=== PATIENT | male | born 1955 | race Caucasian/White ===

== ENCOUNTER 2018-10-03 19:10 | Inpatient (IN) | payer OTHER ==
[~2018-10-03] VITALS: Ht 177.8 cm; Wt 91.4 kg
[~2018-10-03 19:10] MED LIST: ASPI325; ATOR20 PO; CALCA500CH; DIAZ5; Lisinopril2.5 MG PO; METF500 PO; OXYACE7.5T PO; Zantac150 MG PO
[2018-10-03] MEDS ORDERED: METO50 PO (19:22)
[2018-10-03 19:26] LABS: BASOPHILS ABSOLUTE AUTO 0.01 K/mm3 (0.00-0.23); BASOPHILS PERCENT AUTO 0 % (0-2); EOSINOPHILS ABSOLUTE AUTO 0.11 K/mm3 (0.00-0.68); EOSINOPHILS PERCENT AUTO 2 % (0-6); Hematocrit 39.9 % (37.0-53.0); Hemoglobin 13.2 g/dL (13.5-17.5); IMMATURE GRAN ABSOLUTE AUTO 0.01 K/mm3 (0.00-0.10); IMMATURE GRAN PERCENT AUTO 0 % (0-1); LYMPHOCYTES ABSOLUTE AUTO 1.79 K/mm3 (0.84-5.20); LYMPHOCYTES PERCENT AUTO 35 % (21-46); MONOCYTES ABSOLUTE AUTO 0.21 K/mm3 (0.16-1.47); MONOCYTES PERCENT AUTO 4 % (4-13); Mean Corpuscular HGB 36.6 pg (26.0-34.0); Mean Corpuscular HGB Conc 33.1 g/dL (31.5-36.5); Mean Corpuscular Volume 111 fL (80-100); Mean Platelet Volume 8.9 fL (9.1-12.4); NEUTROPHILS ABSOLUTE AUTO 3.03 K/mm3 (1.96-9.15); NEUTROPHILS PERCENT AUTO 59 % (41-73); Platelet Count 132 K/mm3 (150-400); RDW Coefficient Variation 13.5 % (11.7-14.2); RDW Standard Deviation 55.9 fL (35.1-46.3); Red Blood Cell Count 3.61 M/mm3 (4.30-5.90); White Blood Cell Count 5.16 K/mm3 (4.00-11.30)
[2018-10-03 19:40] LABS: PO2 Arterial 65.5 mmHg (80-100); pH Blood Arterial 7.47 (7.35-7.45)
[2018-10-03 19:52] LABS: Alanine Aminotransfer (ALT/SGP 24 U/L (12-78); Albumin, Blood 3.8 g/dL (3.4-5.0); Albumin/Globulin Ratio 1.1 (0.8-1.8); Alk Phos 92 U/L (50-136); Anion Gap 10 mmol/L (6-16); Aspartate Aminotrans (AST/SGOT 19 U/L (12-37); Bilirubin, Total 0.4 mg/dL (0.1-1.0); Blood Urea Nitrogen 9 mg/dL (8-24); Bun/Creatinine Ratio 10.1 (12.0-20.0); CO2, Blood 26 mmol/L (21-32); Calcium, Blood 8.8 mg/dL (8.5-10.1); Chloride, Blood 104 mmol/L (98-108); Creatinine, Blood 0.89 mg/dL (0.60-1.20); Globulin, Blood 3.6 g/dL (2.2-4.0); Glomerular Filtration Rate >60 (60-); Glucose, Blood 158 mg/dL (70-99); Potassium, Blood 3.9 mmol/L (3.5-5.5); Sodium, Blood 140 mmol/L (136-145); Total Protein, Blood 7.4 g/dL (6.4-8.2); Troponin I 0.078 ng/mL (0.000-0.040)
[2018-10-04 01:56] LABS: Anion Gap 7 mmol/L (6-16); Blood Urea Nitrogen 12 mg/dL (8-24); CO2, Blood 26 mmol/L (21-32); Calcium, Blood 8.9 mg/dL (8.5-10.1); Chloride, Blood 108 mmol/L (98-108); Glomerular Filtration Rate >60 (60-); Glucose, Blood 119 mg/dL (70-99); Sodium, Blood 141 mmol/L (136-145)
[2018-10-04 02:01] LABS: BASOPHILS ABSOLUTE AUTO 0.01 K/mm3 (0.00-0.23); BASOPHILS PERCENT AUTO 0 % (0-2); EOSINOPHILS ABSOLUTE AUTO 0.06 K/mm3 (0.00-0.68); EOSINOPHILS PERCENT AUTO 1 % (0-6); Hematocrit 36.7 % (37.0-53.0); Hemoglobin 12.4 g/dL (13.5-17.5); IMMATURE GRAN ABSOLUTE AUTO 0.02 K/mm3 (0.00-0.10); IMMATURE GRAN PERCENT AUTO 1 % (0-1); LYMPHOCYTES ABSOLUTE AUTO 0.75 K/mm3 (0.84-5.20); LYMPHOCYTES PERCENT AUTO 17 % (21-46); MONOCYTES ABSOLUTE AUTO 0.14 K/mm3 (0.16-1.47); MONOCYTES PERCENT AUTO 3 % (4-13); Mean Corpuscular HGB 36.3 pg (26.0-34.0); Mean Corpuscular HGB Conc 33.8 g/dL (31.5-36.5); Mean Platelet Volume 9.3 fL (9.1-12.4); NEUTROPHILS ABSOLUTE AUTO 3.43 K/mm3 (1.96-9.15); NEUTROPHILS PERCENT AUTO 78 % (41-73); Platelet Count 119 K/mm3 (150-400); RDW Coefficient Variation 13.6 % (11.7-14.2); RDW Standard Deviation 53.9 fL (35.1-46.3); Red Blood Cell Count 3.42 M/mm3 (4.30-5.90); White Blood Cell Count 4.41 K/mm3 (4.00-11.30)
[2018-10-04 02:03] LABS: Mean Corpuscular Volume 107 fL (80-100)
--- NOTE | 2018-10-04 07:21 | NUR ---
SUMMARY PT ADMITTED TONIGHT FROM ER. WHEEZING NOTED ON ARRIVAL. SEEE CBG AND VS. PT A/O PLEASANT WILL BE RECEIVING RT CARE T/O STAY. HAS FLUTTER VALVE. A/O IN NO DISTRESS.
[2018-10-04 08:23] LABS: Adenovirus Not Detected (NOT DETECT); Coronavirus 229E Not Detected (NOT DETECT); Coronavirus HKU1 Not Detected (NOT DETECT); Coronavirus NL63 Not Detected (NOT DETECT); Coronavirus OC43 Not Detected (NOT DETECT)
[2018-10-04 08:24] LABS: Bordetella pertussis Not Detected (NOT DETECT); Chlamydophila pneumoniae Not Detected (NOT DETECT); Human Metapneumovirus Not Detected (NOT DETECT); Human Rhinovirus/Enterovirus Detected (NOT DETECT); Influenza A Not Detected (NOT DETECT); Influenza A/2009-H1 Not Detected (NOT DETECT); Influenza A/H1 Not Detected (NOT DETECT); Influenza A/H3 Not Detected (NOT DETECT); Influenza B Not Detected (NOT DETECT); Mycoplasma pneumoniae Not Detected (NOT DETECT); Parainfluenza Virus 1 Not Detected (NOT DETECT); Parainfluenza Virus 2 Not Detected (NOT DETECT); Parainfluenza Virus 3 Not Detected (NOT DETECT); Parainfluenza Virus 4 Not Detected (NOT DETECT); Respiratory Syncytial Virus Not Detected (NOT DETECT)
--- NOTE | 2018-10-04 08:30 | NUR ---
RECEIVED REPORT AND ASSUMED CARE OF PATIENT. HE IS SITTING UP IN BED, PLEASANT AFFECT, HE IS [place] AT BASELINE. EXPLAINED FLUTTER VALVE AND ENCOURAGED USE AT EACH COMMERCIAL BREAK ON THE TELEVISION. PT EXPRESSED UNDERSTANDING. BED LOW AND LOCKED, CALL LIGHT WITHIN EASY REACH.
--- NOTE | 2018-10-04 10:49 | NUR ---
Echocardiogram completed by Larry Oconnor.
--- NOTE | 2018-10-04 11:47 | NUR ---
PERMISSION FOR CARE PT GAVE THIS HOME ORGANIZER PERMISSION TO PROVIDE CARE ON 10/05/18.
--- NOTE | 2018-10-04 19:42 | NUR ---
PT HAD A GOOD DAY TODAY, HE HAD AN ECHO TODAY AND IS SCHEDULED TO HAVE A STRESS TEST TOMORROW. NM AND IMAGING HAVE PT SCHEDULED TO BE NPO TOMORROW AT 0830 AM AND TEST TO BEGIN AT 1230, PT WILL BE NPO UNTIL 1430. PT REPORTS THAT HE IS A CURRENT EVERY DAY SMOKER, BUT REFUSED THE OFFER TO ASK THE DOCTOR FOR A NICOTINE PATCH. GAVE REPORT TO CHRISTINA CHUNG.
--- NOTE | 2018-10-05 02:41 | NUR ---
ASSUMED CARE OF PATIENT AT APPROXIMATELY 1905 FROM SANDY Mccann RN. 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 PATIENT INDEPENDENT IN ROOM; STRESS TEST FOR TODAY; NO CAFFIENE; NPO 4 HOURS PRIOR (0830) TO PROCEDURE ; PATIENT UNDERSTANDS. PATIENT REPORTS BREATHING TREATMENTS AND "THAT STERIOD IN MY IV" IS HELPING HIM TO FEEL MUCH BETTER. NSR ON TELE; OXYGEN SATURATION ABOVE 90% ON ROOM AIR. PIV S/L. PATIENT CURRENTLY SLEEPING IN BED; CALL LIGHT IN REACH; BED IN LOWEST POSISTION; WILL CONTINUE TO MONITOR AND ASSESS UNTIL END OF SHIFT.
--- NOTE | 2018-10-05 05:34 | NUR ---
PATIENT REPORTS HE FEELS BETTER; "I CAN ACTUALLY BREATH"; REPORTS READY TO GO HOME. NO OTHER ACUTE CHANGES; SLEPT ABOUT EIGHT HOURS LAST NIGHT. VSS. WILL CONTINUE TO MONITOR AND ASSESS UNTIL END OF SHIFT.
--- NOTE | 2018-10-05 16:01 | NUR ---
PT ON WAY TO IMAGING FOR NEXT PORTION OF STRESS TEST.
--- NOTE | 2018-10-05 17:42 | NUR ---
SHIFT SUMMARY: PT HAD A BUSY DAY TODAY, HE WAS IN AND OUT OF THE ROOM HAVING HIS STRESS TEST. NPO AFTER 0830 AND WAS ABLE TO BEGIN EATING AROUND 1430, STRESS TEST COMPLETED BY 1630. PT CONTINUES TO BE COMFORTABLE ON ROOM AIR, HE IS INDEPENDENT AND ABLE TO MOVE AND REPOSITION AD JYOTHI AND USES THE BATHROOM OR URINAL. PT HAD ONE BOUT OF SOB THIS MORNING AFTER GETTING BACK TO BED FROM THE BATHROOM. HE STATED THAT HE DID NOT HAVE ANY PAIN IN HIS CHEST, JUST FELT SOB, 02 SAT AT 96%. ENCOURAGED DEEP BREATHS IN NOSE, OUT MOUTH, PATIENT RETURNED TO BASELINE AND EXPRESSED RELIEF. PT IS ANXIOUS TO GO HOME, HOWEVER UNDERSTANDS THAT DR NEEDS TO REVIEW THE TEST RESULTS BEFORE COMPLETING THE POC GOING FORWARD. WILL CONTINUE TO MONITOR PATIENT AND FOLLOW ORDERS. BED LOCKED AND LOW, CALL LIGHT WITHIN EASY REACH.
--- NOTE | 2018-10-05 21:51 | NUR ---
ASSUMED CARE OF PATIENT AT APPROXIMATELY 1905 FROM SANDY Mccann RN. 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 PATIENT INDEPENDENT IN ROOM; STRESS TEST COMPLETED TODAY; RESULTS STILL PENDING. PATIENT REPORTS TROUBLE BREATHING DURING STRESS TEST BUT CONTINUES TO GET BETTER. NSR ON TELE; OXYGEN SATURATION ABOVE 90% ON ROOM AIR. PIV S/L. PATIENT CURRENTLY SLEEPING IN BED; CALL LIGHT IN REACH; BED IN LOWEST POSISTION; WILL CONTINUE TO MONITOR AND ASSESS UNTIL END OF SHIFT.
--- NOTE | 2018-10-06 06:02 | NUR ---
NO ACUTE CHANGE TO REPORT. PATIENT SLEPT ABOUT EIGHT HOURS LAST NIGHT. VSS. WILL CONTINUE TO MONITOR AND ASSESS UNTIL END OF SHIFT.
--- NOTE | 2018-10-06 19:35 | NUR ---
SHIFT SUMMARY Assumed care of pt at 0700. Report received from Neelima VASQUEZ. Pt kept NPO until plan of care could be discussed with Dr Zavaleta. Dr Zavaleta stated plan to consult Dr Purdy. Pt remained NPO until plan of care discussed with Dr Purdy. Plan stated for coronary angiogram. Pt NPO until time of angiogram. Pt returned from [facility] with right femoral artery access site, covered with tegaderm CHG. Site free of drainage, bruising, or hematoma. Color, sensation, capillary refill, and distal pulses equal BLE. Per [facility] staff, angioseal closure device was used. Pt remained flat in bed, positioned in reverse trendelenburg for four-hours post procedure. During bedside report, HOB was elevated 30 degrees. Right femoral artery access site assessed with oncoming RN. No changes noted. Pt educated that he needs to ambulate with assistance. Bed alarm applied. Bed in lowest position. Call light in reach. Pt denies need at this time.
--- NOTE | 2018-10-06 23:23 | NUR ---
PT HAS VTACH RUN OF 29 IN A ROW. PT IMMEDIATELY ASSESSED. VSS. PT DENIES FEELING "DIFFERENT. DENIES CP, LIGHT HEADEDNESS, CHEST PRESSURE, OR REALLY ANY OTHER ADVERSE FEELING. PT ASYMOPTOMATIC. WILL CONTINUE TO MONITOR. VTACH RUN PLACED IN CHART. IF VTACH CONTINUES, PHYSICIAN WILL BE NOTIFIED.
--- NOTE | 2018-10-07 05:07 | NUR ---
END OF SHIFT SUMMARY ASSUMED CARE OF PT @1900. PT ALERT AND ORIENTED TALKING WITH STAFF. PT SLIGHTLY ANXIOUS ABOUT CONDITION. PT EDUCATED ABOUT CURRENT TREATMENTS BEING TAKEN. PT VERY NOOKSACK. PT PRESENTS WITH R GROIN SITE, HAD JUST COMPLETED 4 HOUR PROTOCOL FOR VS. PT HAS REMAINED IN BED T/O SHIFT AND HAS APPEARED TO SLEEP FOR MAJORITY OF IT. PT HAS BEEN USING URINAL. PT HAD RUN OF VTACH FOR 9 CONSECUTIVE BEATS, PT ASYMPTOMATIC. VSS T/O SHIFT. R GROIN SITE STABLE TO ASSESMENT. NON TENDER, NON INFLAMED, DRESSING INTACT, POSTERIOR HIP P[RESENTS WITHOUT BRUISING, AND SITE IS SOFT TO PALPATION. PT EDUCATED ABOUT ACTIVITY RESTRICTIONS FOR SITE. WILL CONTINUE TO MONITOR PT UNTIL SHIFT CHANGE.
--- NOTE | 2018-10-07 07:45 | NUR ---
EDUCATION Pt states he felt his heart "skip a beat". Pt states this is normal for him and has been experiencing it since his 30's. This RN reviewed telemetry and found scattered PVCs. This RN showed rhythm strip to patient and educated him on electrophyisiolgy of the heart.
[2018-10-07] MEDS ORDERED: ACET325 PO (10:07)
[2018-10-07] MEDS ORDERED: ASPI81CH PO (10:08)
[2018-10-07] MEDS ORDERED: ALBU90OI61 INH (10:08)
[2018-10-07] MEDS ORDERED: Isosorbide Mono30 MG (10:09)
[2018-10-07] MEDS ORDERED: FURO20 PO (10:09)
[2018-10-07] MEDS ORDERED: NITR.4SL SL (10:11)
[2018-10-07] MEDS ORDERED: PRED20 PO (10:13)
[2018-10-07] MEDS ORDERED: NICO21TP TOP (10:43)
--- NOTE | 2018-10-07 20:29 | NUR ---
BEGINNING OF SHIFT - DISCHARGE Assumed care of pt upon arrival to unit at 0700. Report received from Anthony VASQUEZ. Shift assessment completed. Dr Purdy in to see pt. States pt is okay to go home and must follow up with cardiology in 1-2 weeks. Update given to Dr Zavaleta. Dr Zavaleta states plan to discharge pt home. Pt updated on plan of care. This RN scheduled pt's next cardiology appointment and primary care appointment. Appointment dates and times added to discharge packet. New medications called to [facility] in [place]. No changes to right femoral site from shift assessment to discharge. Pt educated on smoking cessation. Pt's brother in room at time of discharge education verbalizes doubt in pt's ability to quit smoking. This RN encouarged the brother to support pt's efforts to quit smoking by going though smoking cessation together. Pt verbalizes desire to quit smoking. IV access and telemetry removed. Pt discharged from PCU at 1140. Accompanied to patient entrance via wheelchair with Josie CARVER.
== END 2018-10-07 11:45 | disposition home or self-care (01) | DRG 286 ==
LOC: ER 19:10 → PCU 19:11 → ER 20:50 → PCU 20:50
PROVIDERS: Emergency Medicine; ADMIT Family Medicine
PROC: 4A023N7 Measurement of Cardiac Sampling and Pressure, Left Heart, Percutaneous Approach (ICD-10-PCS; principal; 2018-10-06)
PROC: B211YZZ Fluoroscopy of Multiple Coronary Arteries using Other Contrast (ICD-10-PCS; 2018-10-06)
DX: I25.110 Atherosclerotic heart disease of native coronary artery with unstable angina pectoris (principal); J96.01 Acute respiratory failure with hypoxia; J44.0 Chronic obstructive pulmonary disease with (acute) lower respiratory infection; I10 Essential (primary) hypertension; Z95.1 Presence of aortocoronary bypass graft; E78.5 Hyperlipidemia, unspecified; R73.03 Prediabetes; H81.09 Meniere's disease, unspecified ear; F17.210 Nicotine dependence, cigarettes, uncomplicated; D69.6 Thrombocytopenia, unspecified; R79.89 Other specified abnormal findings of blood chemistry
CPT/HCPCS: 36415; 36600; 71045; 78452; 80048; 80053; 82803; 82947; 83880; 84484; 85025; 87486; 87581; 87633; 87798; 93005; 93010; 93017; 93306; 93458; 93459; 94640; 94644; 94667; 94760; 96372; 96375; 96376; 99152; 99153; 99285-25; A9500; C1760; C1769; G0378; J1644; J1650; J1815; J1940; J2250; J2785; J2930; J3010; J7030; J7512; Q9967

== ENCOUNTER 2018-11-06 14:23 | Emergency (ER) | payer OTHER ==
[~2018-11-06] VITALS: Ht 177.8 cm; Wt 97.2 kg
[~2018-11-06 14:23] MED LIST changes: +ACET325 PO; +ALBU90OI61 INH; +ASPI81CH PO; +FURO20 PO; +Isosorbide Mono30 MG; +METO50 PO; +NICO21TP TOP; +NITR.4SL SL; +PRED20 PO
[2018-11-06 14:54] LABS: BASOPHILS ABSOLUTE AUTO 0.01 K/mm3 (0.00-0.23); BASOPHILS PERCENT AUTO 0 % (0-2); EOSINOPHILS ABSOLUTE AUTO 0.07 K/mm3 (0.00-0.68); EOSINOPHILS PERCENT AUTO 2 % (0-6); Hematocrit 37.4 % (37.0-53.0); Hemoglobin 12.3 g/dL (13.5-17.5); IMMATURE GRAN PERCENT AUTO 0 % (0-1); LYMPHOCYTES ABSOLUTE AUTO 1.96 K/mm3 (0.84-5.20); LYMPHOCYTES PERCENT AUTO 51 % (21-46); MONOCYTES ABSOLUTE AUTO 0.29 K/mm3 (0.16-1.47); MONOCYTES PERCENT AUTO 8 % (4-13); Mean Corpuscular HGB 36.5 pg (26.0-34.0); Mean Corpuscular HGB Conc 32.9 g/dL (31.5-36.5); Mean Corpuscular Volume 111 fL (80-100); Mean Platelet Volume 9.1 fL (9.1-12.4); NEUTROPHILS ABSOLUTE AUTO 1.53 K/mm3 (1.96-9.15); NEUTROPHILS PERCENT AUTO 40 % (41-73); Platelet Count 126 K/mm3 (150-400); RDW Coefficient Variation 13.7 % (11.7-14.2); RDW Standard Deviation 56.1 fL (35.1-46.3); Red Blood Cell Count 3.37 M/mm3 (4.30-5.90); White Blood Cell Count 3.86 K/mm3 (4.00-11.30)
[2018-11-06 15:11] LABS: Alanine Aminotransfer (ALT/SGP 29 U/L (12-78); Albumin, Blood 3.5 g/dL (3.4-5.0); Albumin/Globulin Ratio 1.1 (0.8-1.8); Alk Phos 86 U/L (50-136); Anion Gap 8 mmol/L (6-16); Aspartate Aminotrans (AST/SGOT 18 U/L (12-37); Bilirubin, Total 0.3 mg/dL (0.1-1.0); Blood Urea Nitrogen 11 mg/dL (8-24); Bun/Creatinine Ratio 15.6 (12.0-20.0); CO2, Blood 25 mmol/L (21-32); Chloride, Blood 107 mmol/L (98-108); Creatinine, Blood 0.71 mg/dL (0.60-1.20); Globulin, Blood 3.2 g/dL (2.2-4.0); Glomerular Filtration Rate >60 (60-); Glucose, Blood 151 mg/dL (70-99); Potassium, Blood 3.8 mmol/L (3.5-5.5); Sodium, Blood 140 mmol/L (136-145); Total Protein, Blood 6.7 g/dL (6.4-8.2); Troponin I 0.092 ng/mL (0.000-0.040)
[2018-11-06 15:13] LABS: International Normalized Ratio 0.93; Prothrombin Time Results 9.6 Sec (9.7-11.5)
== END 2018-11-06 17:10 | disposition short-term general hospital (02) ==
LOC: ER 14:23
PROVIDERS: Emergency Medicine
DX: I21.4 Non-ST elevation (NSTEMI) myocardial infarction (principal); I25.110 Atherosclerotic heart disease of native coronary artery with unstable angina pectoris; I10 Essential (primary) hypertension; E11.9 Type 2 diabetes mellitus without complications; E78.00 Pure hypercholesterolemia, unspecified; Z88.8 Allergy status to other drugs, medicaments and biological substances; Z88.2 Allergy status to sulfonamides; Z79.899 Other long term (current) drug therapy; Z79.82 Long term (current) use of aspirin; Z79.84 Long term (current) use of oral hypoglycemic drugs; Z87.891 Personal history of nicotine dependence
CPT/HCPCS: 36415; 71045; 80053; 83880; 84484; 85025; 85610; 85730; 93005; 93010; 96365; 96366; 96368; 99285-25; J1644; J7030

== ENCOUNTER 2021-06-07 08:58 | Emergency (ER) | payer MEDICARE, OTHER ==
[~2021-06-07] VITALS: Ht 177.8 cm; Wt 108.4 kg
[~2021-06-07 08:58] MED LIST changes: +AMOX-CLAV 875-1 EAC1 PO; +CLOP75 PO; +FERSU300 PO; -Isosorbide Mono30 MG; +Isosorbide Mono30 MG PO; +METO100ER PO; +METO25ER PO; +OMEP20ER PO; +ONDA4 PO; +RANEXA500 MG PO; +RANI150EL PO; +TIOT18 INH; +XARELTO20 MG PO; -Zantac150 MG PO
[2021-06-07 10:26] LABS: Hematocrit 33.4 % (37.0-53.0); Hemoglobin 11.1 g/dL (13.5-17.5); Mean Corpuscular HGB 34.9 pg (26.0-34.0); Mean Corpuscular HGB Conc 33.2 g/dL (31.5-36.5); Mean Corpuscular Volume 105 fL (80-100); Mean Platelet Volume 10.1 fL (9.1-12.4); Platelet Count 79 K/mm3 (150-400); RDW Coefficient Variation 19.8 % (11.7-14.2); RDW Standard Deviation 77.9 fL (35.1-46.3); Red Blood Cell Count 3.18 M/mm3 (4.30-5.90); White Blood Cell Count 1.82 K/mm3 (4.00-11.30)
[2021-06-07 10:48] LABS: Anion Gap 8 mmol/L (6-16); Blood Urea Nitrogen 21 mg/dL (8-24); Bun/Creatinine Ratio 23.4 (12.0-20.0); CO2, Blood 27 mmol/L (21-32); Calcium, Blood 9.8 mg/dL (8.5-10.1); Chloride, Blood 104 mmol/L (98-108); Glomerular Filtration Rate >60 (60-); Glucose, Blood 126 mg/dL (70-99); Potassium, Blood 4.2 mmol/L (3.5-5.5); Sodium, Blood 139 mmol/L (136-145)
[2021-06-07 12:02] LABS: BASOPHILS ABSOLUTE MAN 0.01 K/mm3 (0.00-0.23); BASOPHILS PERCENT MAN 1 % (0-2); EOSINOPHILS ABSOLUTE MAN 0.09 K/mm3 (0.00-0.68); EOSINOPHILS PERCENT MAN 5 % (0-6); LYMPHOCYTES ABSOLUTE MAN 1.11 K/mm3 (0.84-5.20); LYMPHOCYTES PERCENT MAN 61 % (21-46); MONOCYTES ABSOLUTE MAN 0.12 K/mm3 (0.16-1.47); MONOCYTES PERCENT MAN 7 % (4-13); NEUTROPHILS ABSOLUTE MAN 0.47 K/mm3 (1.96-9.15); SEG NEUTROPHILS PERCENT MAN 26 % (41-73); TOTAL CELLS COUNTED 100
== END 2021-06-07 12:38 | disposition home or self-care (01) ==
LOC: ER 08:58
PROVIDERS: Physician Assistant
DX: R04.0 Epistaxis (principal); I11.0 Hypertensive heart disease with heart failure; I50.9 Heart failure, unspecified; I48.91 Unspecified atrial fibrillation; I25.10 Atherosclerotic heart disease of native coronary artery without angina pectoris; E11.9 Type 2 diabetes mellitus without complications; Z79.899 Other long term (current) drug therapy; Z79.84 Long term (current) use of oral hypoglycemic drugs; Z79.01 Long term (current) use of anticoagulants; Z79.82 Long term (current) use of aspirin
CPT/HCPCS: 36415; 80048; 85025; A9270

== ENCOUNTER 2021-06-07 16:58 | Emergency (ER) | payer MEDICARE, OTHER ==
[~2021-06-07] VITALS: Ht 177.8 cm; Wt 108.4 kg
== END 2021-06-07 22:00 | disposition home or self-care (01) ==
LOC: ER 16:58
DX: R04.0 Epistaxis (principal); I25.10 Atherosclerotic heart disease of native coronary artery without angina pectoris; E11.9 Type 2 diabetes mellitus without complications; I11.0 Hypertensive heart disease with heart failure; I50.9 Heart failure, unspecified; I48.91 Unspecified atrial fibrillation; Z88.8 Allergy status to other drugs, medicaments and biological substances; Z88.2 Allergy status to sulfonamides; Z79.899 Other long term (current) drug therapy; Z79.84 Long term (current) use of oral hypoglycemic drugs; Z79.82 Long term (current) use of aspirin; Z79.01 Long term (current) use of anticoagulants
CPT/HCPCS: A9270; J2405

== ENCOUNTER 2021-08-27 11:03 | Inpatient (IN) | payer MEDICARE, OTHER ==
[~2021-08-27] VITALS: Ht 177.8 cm; Wt 106.1 kg
[2021-08-27 11:48] LABS: Hematocrit 24.2 % (37.0-53.0); Hemoglobin 8.3 g/dL (13.5-17.5); Mean Corpuscular HGB 37.4 pg (26.0-34.0); Mean Corpuscular HGB Conc 34.3 g/dL (31.5-36.5); Mean Corpuscular Volume 109 fL (80-100); NRBC ABSOLUTE 0.03 K/mm3 (0.00-0.02); RDW Coefficient Variation 16.1 % (11.7-14.2); RDW Standard Deviation 63.7 fL (35.1-46.3); Red Blood Cell Count 2.22 M/mm3 (4.30-5.90)
[2021-08-27 11:57] LABS: BASOPHILS ABSOLUTE AUTO 0.01 K/mm3 (0.00-0.23); BASOPHILS PERCENT AUTO 1 % (0-2); EOSINOPHILS PERCENT AUTO 0 % (0-6); IMMATURE GRAN ABSOLUTE AUTO 0.02 K/mm3 (0.00-0.10); IMMATURE GRAN PERCENT AUTO 2 % (0-1); LYMPHOCYTES ABSOLUTE AUTO 0.61 K/mm3 (0.84-5.20); LYMPHOCYTES PERCENT AUTO 62 % (21-46); MONOCYTES ABSOLUTE AUTO 0.06 K/mm3 (0.16-1.47); MONOCYTES PERCENT AUTO 6 % (4-13); Mean Platelet Volume 9.3 fL (9.1-12.4); NEUTROPHILS ABSOLUTE AUTO 0.29 K/mm3 (1.96-9.15); NEUTROPHILS PERCENT AUTO 29 % (41-73); Platelet Count 19 K/mm3 (150-400); White Blood Cell Count 0.99 K/mm3 (4.00-11.30)
[2021-08-27 12:09] LABS: Alanine Aminotransfer (ALT/SGP 27 U/L (12-78); Albumin, Blood 3.2 g/dL (3.4-5.0); Albumin/Globulin Ratio 0.8 (0.8-1.8); Alk Phos 80 U/L (50-136); Anion Gap 9 mmol/L (6-16); Aspartate Aminotrans (AST/SGOT 15 U/L (12-37); Bilirubin, Total 0.5 mg/dL (0.1-1.0); Blood Urea Nitrogen 13 mg/dL (8-24); Bun/Creatinine Ratio 16.9 (12.0-20.0); CO2, Blood 23 mmol/L (21-32); Calcium, Blood 9.1 mg/dL (8.5-10.1); Chloride, Blood 104 mmol/L (98-108); Creatinine, Blood 0.77 mg/dL (0.60-1.20); Globulin, Blood 3.8 g/dL (2.2-4.0); Glomerular Filtration Rate >60 (60-); Glucose, Blood 156 mg/dL (70-99); Sodium, Blood 136 mmol/L (136-145)
[2021-08-27] MEDS ORDERED: VENCLEXTA100 MG PO (13:34)
[2021-08-27] MEDS ORDERED: Isosorbide Mono30 MG PO (14:12)
[2021-08-27] MEDS ORDERED: LIDO5TO TOP (14:13)
[2021-08-27] MEDS ORDERED: ANORO ELLIPTA1 EACH INH (14:18)
[2021-08-27] MEDS ORDERED: PROM25 PO (14:18)
[2021-08-27] MEDS ORDERED: AZACITIDINE100 MG IV (14:20)
--- NOTE | 2021-08-27 18:17 | NUR ---
SHIFT SUMMARY PT HAS BEEN RESTING IN BED SINCE ADMISSION. PT HAS C/O PAIN TO THE LLQ ABDOMEN AND GENERALIZED WEAKNESS. PT AND FAMILY HAD A DISCUSSION AT LENGTH WITH THE HOSPITALIST TO DISCUSS CURRENT CONDITION AND PLAN OF CARE. PT ELECTED TO BE TRANSITIONED TO COMFORT CARE AT THAT TIME. PT RECEIVED BOTH A UNIT OF PLASMA AND A UNIT OF PRBCS, THERE WERE NO REACTIONS AND PT TOLERATED WELL. PT HAS BEEN ABLE TO REPOSITION SELF FREQUENTLY IN BED AND HAS MADE NO COMPLAINT OF DISCOMFORT.
--- NOTE | 2021-08-27 20:00 | NUR ---
PT HAS MULTIPLE REQUESTS - INCLUDING HIS CURRENT HOME MEDICATION REGIME - REVIEWED WITH PT MEDICATIONS - PT REQUESTING HIS BLOOD PRESSURE MEDICATION - HOWEVER PT SOMEWHAT UNSURE OF THE MEDICATION NAME - REVIEWED ISOSORBIDE - PT STATES THAT'S THE ONE. PT ALSO REQUESTING AUGMENTIN FOR HIS DIVERTICULITIS - PT REPORTS GI REPORTED TO HIM TODAY, THAT HE SHOULD CONTINUE ON THIS MEDICATION. PT REPORTS HE WAS TOLD TO [facility] BY HIS DOCTOR. PT UNDERSTANDS HE IS TO GO HOME TOMORROW ON HOSPICE. I REVIEWED WITH PT, THAT HE CURRENTLY IS CONSIDERED COMFORT CARE HERE, WITH PLANS FOR HOSPICE. 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 VS TAKEN - SEE CHART. LS ARE CLEAR THROUGHOUT. PT HAS A 20G IV TO HIS R AC - FLUSHED WITH NS WITHOUT COMPLICATIONS.
--- NOTE | 2021-08-27 20:40 | NUR ---
REVIEWED WITH DR. JEREZ PT'S REQUESTS FOR AUGMENTIN, AND ISOSORBIDE - ORDER RECEIVED FOR AUGMENTIN, HOWEVER DR. JEREZ DECLINED ISOSORBIDE TONIGHT - I RELAYED TO DR. JEREZ BP 128/76.
--- NOTE | 2021-08-27 22:10 | NUR ---
LIGHTS OUT IN ROOM PER PT REQUEST - PT REPORTS HE IS GOING TO TRY TO GET SOME SLEEP TONIGHT. CALL LIGHT WITHIN REACH. BED IN LOW POSITION. FLUIDS AT BEDSIDE.
--- NOTE | 2021-08-27 22:52 | NUR ---
PT RESTING QUIETLY IN BED - REPORTS HE IS "COMFORTABLE" - DENIES ANY REQUESTS AT THIS TIME. CALL LIGHT WITHIN REACH. BED IN LOW POSITION. FLUIDS AT BEDSIDE.
--- NOTE | 2021-08-27 23:24 | NUR ---
URINE OUTPUT - 200 CC
--- NOTE | 2021-08-27 23:56 | NUR ---
PT IS SLEEPING, RESPIRATIONS EVEN AND UNLABORED. BED ALARM PLACED ON FOR SAFETY. CALL LIGHT WITHIN REACH. BED IN LOW POSITION.
--- NOTE | 2021-08-28 03:30 | NUR ---
300 CC YELLOW URINE OUT IN URINAL. PT CONTINUES SLEEPING.
--- NOTE | 2021-08-28 04:41 | NUR ---
PT AWAKE, DENIES REQUEST FOR PAIN MEDICATIONS. PT REPORTS HE "HAS SLEPT MORE THAN HE HAS BEEN." PT DENIES ANY REQUESTS AT THIS TIME. BED ALARM ON FOR SAFETY. CALL LIGHT WITHIN REACH. BED IN LOW POSITION.
--- NOTE | 2021-08-28 05:44 | NUR ---
SHIFT SUMMARY - PT IS COMFORT CARE, AND IS ANTICIPATING DC HOME ON HOSPICE TODAY. PT SLEPT THROUGHOUT MOST OF THE NIGHT, AFTER ATIVAN 0.5MG GIVEN IV. PT MEDICATED X2 FOR PAIN - SEE EMAR. PT DENIED ANY FURTHER REQUESTS FOR PAIN MEDICATION THIS AM - PT REPORTS HE IS "DOING FINE." CALL LIGHT WITHIN REACH. FLUIDS AT BEDSIDE. TOLERATED PO FLUIDS WITHOUT COMPLICATIONS. BED ALARM ON FOR SAFETY.
--- NOTE | 2021-08-28 06:56 | NUR ---
PT REPORTS HE FOLLOWS A REGULAR AM ROUTINE AT HOME, WHEN HE WAKES UP HE TAKES HIS ANORA INHALER, OR PLACES OXYGEN ON, DUE TO COPD. PT IS REQUESTING OXYGEN ON - 2L OXYGEN PLACED ON VIA NC. NO SIGNS OR SYMPTOMS OF RESPIRATORY DISTRESS. PT IN BED IN HIGH SEMI FOWLERS POSITION, WATCHING TV. CALL LIGHT WITHIN REACH. BED ALARM ON FOR SAFETY - UPDATED PT ON THIS. FLUIDS AT BEDSIDE.
--- NOTE | 2021-08-28 10:13 | NUR ---
Late Entry from 08/28/2021 at 0800: Received referral from [facility] [employer] (Kenzie Abdul OR Lamar Rao) via email on 08/27/2021. Patient is to discharge with orders for hospice and family elected [facility]. Gathered supporting documentation for referral (face sheet, labs, imaging, progress notes, palliative care note, and H&P) and sent to [facility] Clinical Coordinator (Malgorzata Hawthorne) for review of hospice appropriateness and ability to accept patient onto service post discharge. Will await further information from hospice human geography instructor regarding the above. Sharron Clarke Referral Liaison
--- NOTE | 2021-08-28 11:36 | NUR ---
Received notification from [facility] Clinical Coordinator (Malgorzata Hawthorne) that patient is hospice appropriate and able to be accepted onto service post discharge. Will attempt to meet with patient and family today to further discuss the above. Will continue to monitor and follow for discharge. Sharron Clarke Referral Liaison
[2021-08-28] MEDS ORDERED: MORP20L SL (12:13)
[2021-08-28] MEDS ORDERED: ATIVAN0.5 MG PO (12:14)
[2021-08-28] MEDS ORDERED: Anaspaz0.125 MG PO (12:15)
--- NOTE | 2021-08-28 12:15 | NUR ---
Met with Zoran and his sister, Nathalie, in his room. They have questions about hospice and the plan for his discharge. Zoran's biggest concern is that he does not want to be in pain. Spoke with Anna, hospice liason, and she will be coming to meet with pt and his sister. Discussed hospice, answered questions. Reviewed EMAR. Medicated with roxinol and zofran. Pt reports symptom improvement. Pt states he has not had a BM recently. He plans to take bowel care meds when he gets home today. [facility] plans to admit pt on service tomorrow. He is interested in a hospital bed, bedside table and possibly a BSC. Nathalie plans to take Zoran home in her private car this afternoon.
--- NOTE | 2021-08-28 12:26 | NUR ---
Met with patient and patient's sister (Nathalie Castrejon) to further hospice services and election of [facility]. Patient and sister are agreeable to the above. Discussed what hospice is (reserved for patients with a terminal diagnosis with life expectancy of 6 months or less). Discussed that some patients exceed the 6 months expectancy and stay on service while other patients may stabilize and come off hospice. Patient and sister verbalized understanding of the above. Discussed with patient and sister that hospice service focuses on quality of life at the end of life and that rather than measuring the quantity of days, the quality of those days would be measured. Discussed with patient and sister that with hospice service the goal would be to keep the patient out of the hospital and comfortable by managing symptoms at home. Patient and sister verbalized understanding. Discussed the people, prescriptions, and equipment of hospice. People- discussed the team of people and their roles (RNs, chaplains, therapists, LCSWs, CNAs, and volunteers) that would be there to support not only the patient but also their family during this time. Explained to the patient and sister that the team would be custom tailored to the patient needs during this time. Patient and sister verbalized understanding. Prescriptions- discussed that we utilize a mail order pharmacy ([facility]) to provide medications related to the hospice diagnosis and for symptom management. All other medications that patient chose to stay on would be patient's and/or patient's family's responsibility to provide and pay for. Patient and sister verbalized understanding. Discussed that upon discharge patient would be given three prescriptions, one for morphine 20mg/mL #30mL (0.25mL - 1mL PO/SL Q1H PRN SOB/pain), one for lorazepam 0.5mg #20 (1 - 2 PO Q4H PRN anxiety), and one for hyoscyamine 0.125mg SL tablets #30 (1 SL Q2H PRN secretions). Explained to the patient and sister that as patient would not yet be admitted to hospice service at the time of discharge those prescriptions would be patient/patient's family's responsibility to fill and pay for. Patient and sister verbalized understanding. Equipment- discussed with patient and sister that we contract through [employer] to provide DME such as hospital beds, commodes, etc. to patient. No order for DME was written at this time as patient is being discharged from [facility] today- 08/28/2021 and being admitted to hospice services tomorrow- 08/29/2021. Discussed with patient and sister that [facility] does not supply the sheets for the beds. Discussed that one of two options can be used- either a twin extra-long fitted sheet OR a cantu sized flat sheet wrapped around the pump & pad. Patient and sister verbalized understanding. Discussed with patient and sister that once patient was admitted onto hospice services the goal would be for them to contact us ([facility]) over contacting 911 or presenting back to the hospital/ED. Patient and sister verbalized understanding. Discussed the tentative discharge plans for today- 08/28/2021 as soon as possible with preferred method of transport- private vehicle provided by patient's sister. Offered a chance for patient and sister to ask questions regarding the above of which there were none. Will continue to monitor and follow as appropriate for discharge. Sharron Clarke Referral Liaison
--- NOTE | 2021-08-28 12:27 | NUR ---
Patient is to discharge today with orders for hospice. Notified [facility] Entry Level Chemist (Kenzie Abdul), seafood service team member (Anson Sewell), and bedside RN (Annika Andrade) of the above. All are agreeable to the above. Requested discharge orders from hospitalist (Dr. Lopez) through [facility] Entry Level Chemist. Provided hard copy prescriptions for morphine and lorazepam to patient's sister (Nathalie Castrejon) on Thursday- 08/28/2021. Faxed copies of discharge order and med list to [facility] bell neck hammerer. No further interventions required. Sharron Clarke Referral Liaison
--- NOTE | 2021-08-28 12:30 | NUR ---
PT DISCHARGED HOME ON HOSPICE. RXs GIVEN TO HIS FAMILY MEMBER BY HOSPICE STAFF IN ROOM. DISCHARGE PAPERS REVIEWED W PATIENT INCLUDING MEDICATION LIST AND TO CONTACT HOSPICE SERVICES W ANY QUESTIONS OR CONCERNS. PT AND FAMILY AT BEDSIDE VERBALIZE UNDERSTANDING AND HAVE NO FURTHER QUESTIONS OR CONCERNS AT THIS TIME. IV REMOVED WNL. ALL BELONGINGS SEND HOME WITH PT.
--- NOTE | 2021-08-28 12:52 | NUR ---
IV TO R AC REMOVED WNL. NO REDNESS OR S/SX OF INFECTION NOTED.
== END 2021-08-28 12:41 | disposition home or self-care (01) | DRG 378 ==
LOC: ER 11:03 → PCU 11:04
PROVIDERS: Emergency Medicine; ADMIT Family Medicine
PROC: 30233R1 Transfusion of Nonautologous Platelets into Peripheral Vein, Percutaneous Approach (ICD-10-PCS; principal; 2021-08-27)
PROC: 30233N1 Transfusion of Nonautologous Red Blood Cells into Peripheral Vein, Percutaneous Approach (ICD-10-PCS; 2021-08-27)
DX: K57.93 Diverticulitis of intestine, part unspecified, without perforation or abscess with bleeding (principal); C92.00 Acute myeloblastic leukemia, not having achieved remission; D62 Acute posthemorrhagic anemia; Z51.5 Encounter for palliative care; K92.2 Gastrointestinal hemorrhage, unspecified; I48.91 Unspecified atrial fibrillation; Z88.2 Allergy status to sulfonamides; Z88.8 Allergy status to other drugs, medicaments and biological substances; Z79.84 Long term (current) use of oral hypoglycemic drugs; Z79.899 Other long term (current) drug therapy; Z79.82 Long term (current) use of aspirin; I25.10 Atherosclerotic heart disease of native coronary artery without angina pectoris; E78.5 Hyperlipidemia, unspecified; I11.0 Hypertensive heart disease with heart failure; I50.9 Heart failure, unspecified; K21.9 Gastro-esophageal reflux disease without esophagitis; Z95.1 Presence of aortocoronary bypass graft; Z87.442 Personal history of urinary calculi; Z90.49 Acquired absence of other specified parts of digestive tract; Z98.890 Other specified postprocedural states; Z87.891 Personal history of nicotine dependence; Z68.35 Body mass index [BMI] 35.0-35.9, adult
CPT/HCPCS: 36415; 36430; 74177; 80053; 85025; 86850; 86900; 86901; 86923; 93005; 93010; 96374; 96375; 99285-25; A9270; J1170; J2060; J2270; J2405; J7030; P9016; P9053; Q9967